=== PATIENT | female | born 1955 | race Caucasian/White ===

== ENCOUNTER 2022-03-17 09:33 | Observation (INO) ==
--- NOTE | 2022-03-17 09:46 | Emergency Department Note ---
HPI General Chief complaint: Abdominal Pain Stated complaint: right upper abd pain Time Seen by Provider: 03/17/22 09:35 Source: patient Mode of arrival: ambulatory Limitations: no limitations History of Present Illness HPI Narrative: Narrative: 66 yo F w/ h/o gallstones, hyperthyroidism p/w RUQ pain. She has been seen for this in the past, Dx'd w/ gallstones, and is on the schedule for rosemarie cristobal w/ Dr Hernandez on 03/22. However over the past few days she has had intermittent but progressive RUQ pain that radiates to the back. She does not think that she has had N/V or F/C. She has o/w been well. She does not note any significant alleviating/aggravating factors other than improvement after drinking her coffee this AM. Last PO was coffee w/ milk and sugar a few hours [employer]S [employer]. Related Data Home Medications Medication Instructions Recorded Confirmed cholecalciferol (vitamin D3) 75 3,000 unit PO QDAY 07/13/19 03/17/22 mcg (3,000 unit) tablet krill oil 500 mg capsule 500 mg PO QDAY cap 07/13/19 03/17/22 multivitamin (Multiple Vitamins) 1 tab PO QDAY 07/13/19 03/17/22 cranberry 400 mg capsule 3,600 mg PO QDAY 12/12/20 03/17/22 lutein 6 mg capsule 20 mg PO QDAY 12/12/20 03/17/22 calcium carbonate 500 mg calcium 500 mg PO QDAY 02/04/22 03/17/22 (1,250 mg) chewable tablet (Calcium 500) advanced iron 2 tab PO QDAY 03/12/22 03/17/22 vitamin B complex 1 tab PO QDAY 03/14/22 03/17/22 Allergies Allergy/AdvReac Type Severity Reaction Status Date / Time No Known Drug Allergies Allergy Verified 03/17/22 09:36 Review of Systems ROS ROS Narrative: Narrative: All systems ED: reviewed and negative except as stated. 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 Frausto History of esophagogastroduodenoscopy (EGD) (03/24/08) Dr Frausto History of surgery (~2007) venography and USG sclerotherapy - Dr. Joshi at [place]/bilateral pelvic vein coil embolization x3 History of total abdominal hysterectomy (~1988) Family History Mother , age 73 Heart attack Father Aneurysm age 87 Dementia Social History Smoking Status: Never smoker Alcohol Intake Frequency: a few times a week Substance Use: does not use Exam Narrative Narrative: Narrative: General Limitations: no limitations General appearance: Present alert and in no apparent distress Head Head: Present atraumatic and normocephalic Eye Eye: Present normal appearance; Absent scleral icterus ENT ENT: Present normal oropharynx and mucous membranes moist Chest Chest: Present normal inspection and symmetric chest wall rise Respiratory Respiratory: Present normal lung sounds bilaterally; Absent respiratory distress Cardiovascular Cardiovascular: Present regular rate, normal rhythm, +S1, +S2 and other (2+ B/L radial and DP pulses); Absent systolic murmur or diastolic murmur Adbominal Abdominal: Present soft, tenderness (RUQ, epigastric ), normal bowel sounds and Ham's sign; Absent distention, guarding, rebound or rigidity Extremities Extremities: Absent pedal edema Neurological Neurological: Present alert and oriented X3 Psychiatric Psychiatric: Present normal affect Skin Skin: Present warm (WNL) and dry Course Vital Signs Vital signs: Vital Signs Temperature 97.9 F 03/17/22 09:34 Pulse Rate 94 H 03/17/22 09:34 Respiratory Rate 20 03/17/22 09:34 Blood Pressure 150/80 03/17/22 09:34 Pulse Oximetry (%) 97 03/17/22 09:34 Temperature 97.9 F 03/17/22 12:56 Pulse Rate 79 03/17/22 12:56 Respiratory Rate 20 03/17/22 12:56 Blood Pressure 119/65 03/17/22 12:56 Pulse Oximetry (%) 97 03/17/22 12:56 MDM MDM Narrative Medical decision making narrative: Narrative: 66 yo F w/ h/o gallstones, hyperthyroidism p/w RUQ pain. DDx - peritonitis, cholecystitis, ascending cholangitis, pancreatitis, choledocholithiasis Pt presented clinically stable, in NAD. Her exam was not c/w peritonitis and CT was not indicated. With a positive Ham's, cholecystitis was clearly a concern. I checked a RUQ US to evaluate for this. While doing so I Tx'd w/ morphine however her pain returned, requiring a second dose. Labs showed no leukocytosis, normal LFTs, normal lipase. US showed gallbladder distension and multiple stones, along w/ some distension of the pancreatic head. I d/w Dr Hernandez and he admitted the pt w/ plan for operative intervention in the AM. I started her on IVF and IV abx. Lab Data Lab results reviewed: Yes I reviewed the patient's lab results. Result diagrams: 03/17/22 09:48 03/17/22 09:48 Labs: Lab Results 03/17/22 03/17/22 03/17/22 Range/Units 09:48 09:48 10:00 WBC 6.4 (4.5-11.0) K/mcL RBC 4.49 (3.59-5.38) M/mcL Hgb 12.1 (11.2-15.7) g/dL Hct 37.2 (34.1-44.9) % MCV 82.9 (80.0-100.0) fL MCH 26.9 (26.0-34.0) pg MCHC 32.5 (31.0-36.0) g/dL RDW 13.2 (11.5-14.5) % Plt Count 243 (140-440) K/mcL MPV 9.8 (7.4-10.4) fL Neut % (Auto) 77.5 (38.0-78.0) % Lymph % (Auto) 12.8 L (15.5-49.0) % [place] % (Auto) 8.6 (1.0-12.0) % Eos % (Auto) 0.5 (0.0-7.0) % Baso % (Auto) 0.6 (0.0-2.0) % Lymph # (Auto) 0.82 L (1.50-4.80) K/mcL [place] # (Auto) 0.55 (0.10-0.90) K/mcL Eos # (Auto) 0.03 (0.00-0.70) K/mcL Baso # (Auto) 0.04 (0.00-0.30) K/mcL Absolute Neutrophils 4.98 (1.80-8.00) K/mcL Sodium 136 (133-145) mmol/L Potassium 4.0 (3.3-5.1) mmol/L Chloride 101 (96-108) mmol/L Carbon Dioxide 25 (22-30) mmol/L Anion Gap 10.0 (8.0-16.0) BUN 8 (8-23) mg/dL Creatinine 0.5 L (0.6-1.1) mg/dL GFR Calculation 100 Glucose 107 H (70-105) mg/dL Calcium 9.3 (8.6-10.4) mg/dL Total Bilirubin 0.7 (0.1-1.0) mg/dL AST 13 (<32) U/L ALT 8 (<40) U/L Alkaline Phosphatase 75 (39-117) U/L Total Protein 6.6 (5.9-8.4) gm/dL Albumin 4.5 (3.2-5.2) gm/dL Globulin 2.1 L (2.2-3.7) gm/dL Albumin/Globulin Ratio 2.1 (1.0-2.3) Lipase 14 (7-60) U/L Urine Color Yellow Urine Appearance Clear (Clear) Urine pH 6.0 (5.0-9.0) Ur Specific [place] 1.016 (1.000-1.035) Urine Protein Negative (Negative) mg/dL Urine Glucose (UA) Negative (Negative) mg/dL Urine Ketones 5 A (Negative) mg/dL Urine Occult Blood 0.03 (Negative) mg/dL Urine Nitrate Negative (Negative) Urine Bilirubin Negative (Negative) mg/dL Urine Urobilinogen Negative mg/dL Ur Leukocyte Esterase Negative (Negative) /uL Urine RBC 4 H (0-3) /hpf Urine WBC 2 (0-4) /hpf Ur Squamous Epith Cells < 1 (0-4) /hpf Urine Bacteria None (0) /hpf Urine Mucus Mod A (None) /hpf Ur Culture Indicated? No Discharge Plan Patient/Caregiver Discharge Instructions Pt seen by THEATER EDUCATION TEACHER/PA only: No Clinical Impression: Acute cholecystitis Patient Disposition: Xfer As Inpt ([facility]) Condition: Fair Follow up with: Lia Woodruff ARNP [Primary Care Provider] - Prescriptions: No Action cholecalciferol (vitamin D3) 3,000 unit tablet 3,000 unit PO QDAY 0RF krill oil 500 mg capsule 500 mg PO QDAY 0RF multivitamin [Multiple Vitamins] tablet 1 tab PO QDAY 0RF advanced iron tablet 2 tab PO QDAY 0RF calcium carbonate [Calcium 500] 500 mg calcium (1,250 mg) tablet,chewable 500 mg PO QDAY 0RF lutein 6 mg capsule 20 mg PO QDAY 0RF Rx Instructions: give with meal/snack cranberry 400 mg capsule 3,600 mg PO QDAY 0RF Rx Instructions: administer with a meal vitamin B complex [Super B Complex] Tablet 1 tab PO QDAY 0RF
[2022-03-17] MEDS ORDERED: ONDANSETRON 4 MG/2 ML VIAL IV ONE (09:47)
[2022-03-17] MEDS ORDERED: morphine 2 MG/ML VIAL IV ONE ×2 (09:47→12:38)
[2022-03-17 10:18] LABS: Basophils # (Auto) 0.04 K/mcL (0.00-0.30); Basophils % (Auto) 0.6 % (0.0-2.0); Eosinophils # (Auto) 0.03 K/mcL (0.00-0.70); Eosinophils % (Auto) 0.5 % (0.0-7.0); Hematocrit 37.2 % (34.1-44.9); Hemoglobin 12.1 g/dL (11.2-15.7); Lymphocytes # (Auto) 0.82 K/mcL (1.50-4.80); Lymphocytes % (Auto) 12.8 % (15.5-49.0); Mean Cell Volume 82.9 fL (80.0-100.0); Mean Corpuscular HGB Conc 32.5 g/dL (31.0-36.0); Mean Platelet Volume 9.8 fL (7.4-10.4); Monocytes # (Auto) 0.55 K/mcL (0.10-0.90); Monocytes % (Auto) 8.6 % (1.0-12.0); Neutrophils % (Auto) 77.5 % (38.0-78.0); Platelet Count 243 K/mcL (140-440); RBC 4.49 M/mcL (3.59-5.38); Red Cell Distribution Width 13.2 % (11.5-14.5); WBC 6.4 K/mcL (4.5-11.0)
[2022-03-17 10:48] LABS: ALT/SGPT 8 U/L (<40); AST/SGOT 13 U/L (<32); Albumin 4.5 gm/dL (3.2-5.2); Albumin/Globulin Ratio 2.1 (1.0-2.3); Alkaline Phosphatase 75 U/L (39-117); Bilirubin,Total 0.7 mg/dL (0.1-1.0); Blood Urea Nitrogen 8 mg/dL (8-23); Calcium 9.3 mg/dL (8.6-10.4); Carbon Dioxide 25 mmol/L (22-30); Chloride 101 mmol/L (96-108); Globulin 2.1 gm/dL (2.2-3.7); Glomerular Filtration Rate 100; Glucose 107 mg/dL (70-105)
[2022-03-17 11:01] LABS: Appearance,Urine CLEAR (Clear); Bilirubin,Urine Negative (Negative); Color,Urine YELLOW; Culture Indicated,Urine No; Glucose,Urine (UA) Negative (Negative); Ketones,Urine 5 mg/dL (Negative); Leukocyte Esterase,Urine Negative /uL (Negative); Mucus,Urine MOD /hpf; Nitrate,Urine Negative (Negative); Protein,Urine Negative (Negative); Specific Gravity,Urine 1.016 (1.000-1.035); Urine Blood 0.03 mg/dL (Negative); Urine RBC 4 /hpf (0-3); Urine Squamous Epithelial Cell < 1 /hpf (0-4); Urine WBC 2 /hpf (0-4); Urobilinogen,Urine Negative
[2022-03-17] MEDS ORDERED: PIPERACILLIN SODIUM/TAZOBACTAM 3.375 GM in DEXTROSE 5% IN WATER 50 ML IV ONE (12:51)
[2022-03-17] MEDS ORDERED: DEXTROSE 5%-NS W/20MEQ KCL 1,000 ML IV SCH (13:00)
[2022-03-17] MEDS ORDERED: ONDANSETRON 4 MG/2 ML VIAL IV PRN (13:45)
--- NOTE | 2022-03-17 13:45 | General Surg History&Physical ---
HPI History of Present Illness Patient information: Note initiated : 03/17/22 at 1:44 pm Service Date, if different from initiated Date: [] Patient: Carlota Crowell a 66 y/o F admitted on for right upper abd pain. Chief Complaint: [] Chief complaint: Acute biliary colic History of present illness: Ms. Crowell is a 66 year old F with known history of gallstone disease. She was seen in the office on 12 March with complaint of crampy epigastric and right upper quadrant pain with radiation through to her back. She did not have nausea or vomiting. Previous ultrasound has revealed multiple gallstones. Patient is scheduled for cholecystectomy on 22 March 2022. She has had multiple episodes of increased pain with nausea and presents to the emergency room with severe discomfort. She was given 2 injections of analgesics and still remains uncomfortable. She is admitted and will have cholecystectomy in the a.m. 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 Frausto History of esophagogastroduodenoscopy (EGD) (03/24/08) Dr Frausto History of surgery (~2007) venography and USG sclerotherapy - Dr. Joshi at [place]/bilateral pelvic vein coil embolization x3 History of total abdominal hysterectomy (~1988) Family History Mother , age 73 Heart attack Father Aneurysm age 87 Dementia Social History marital status: physical activity: none alcohol intake frequency: a few times a week substance use type: does not use seatbelt use: always MEDS/ALLERGIES Home Medications and Allergies Home Medications Medication Instructions Recorded Confirmed Type cholecalciferol (vitamin D3) 75 3,000 unit PO QDAY 07/13/19 03/17/22 History mcg (3,000 unit) tablet krill oil 500 mg capsule 500 mg PO QDAY cap 07/13/19 03/17/22 History multivitamin (Multiple Vitamins) 1 tab PO QDAY 07/13/19 03/17/22 History cranberry 400 mg capsule 3,600 mg PO QDAY 12/12/20 03/17/22 History lutein 6 mg capsule 20 mg PO QDAY 12/12/20 03/17/22 History calcium carbonate 500 mg calcium 500 mg PO QDAY 02/04/22 03/17/22 History (1,250 mg) chewable tablet (Calcium 500) advanced iron 2 tab PO QDAY 03/12/22 03/17/22 History vitamin B complex 1 tab PO QDAY 03/14/22 03/17/22 History Allergies Allergy/AdvReac Type Severity Reaction Status Date / Time No Known Drug Allergies Allergy Verified 03/17/22 09:36 Physical Examination Vital Signs Vital signs: Temp Pulse Resp BP Pulse Ox 97.9 F 85 20 118/67 99 03/17/22 12:56 03/17/22 13:16 03/17/22 12:56 03/17/22 13:16 03/17/22 13:16 General physical appearance General physical exam: well developed, well nourished, moderate distress and moderate pain Eyes Eye exam: PERRL and normal ocular movement ENT ENT exam: normal mucosa Head Head exam IM: Present atraumatic, normal inspection and normocephalic Neck Neck exam: no masses, no bruits, trachea midline, no lymphadenopathy and no venous distension Cardiovascular Cardiovascular exam IM: Present normal rate and rhythm, RRR, +S1 and +S2; Absent JVD Respiratory Respiratory exam: normal expansion, normal respiratory effort and clear to auscultation Abdomen Abdomen: Present tender (Epigastric and right upper quadrant tenderness) Integumentary Integumentary: Present no rash, no growths and no abnormal pigmentation Neurologic Neurologic: Present normal coordination and normal sensation Musculoskeletal Musculoskeletal: Present normal gait and normal posture Psychiatric Psychiatric: Present oriented to time, oriented to person, oriented to place, speech is normal and memory intact Results Labs Result diagrams: 03/17/22 09:48 03/17/22 09:48 Labs: Abnormal lab results 03/17/22 03/17/22 03/17/22 Range/Units 09:48 09:48 10:00 Lymph % (Auto) 12.8 L (15.5-49.0) % Lymph # (Auto) 0.82 L (1.50-4.80) K/mcL Creatinine 0.5 L (0.6-1.1) mg/dL Glucose 107 H (70-105) mg/dL Globulin 2.1 L (2.2-3.7) gm/dL Urine Ketones 5 A (Negative) mg/dL Urine RBC 4 H (0-3) /hpf Urine Mucus Mod A (None) /hpf Diabetes panel 03/17/22 Range/Units 09:48 Sodium 136 (133-145) mmol/L Potassium 4.0 (3.3-5.1) mmol/L Chloride 101 (96-108) mmol/L Carbon Dioxide 25 (22-30) mmol/L BUN 8 (8-23) mg/dL Creatinine 0.5 L (0.6-1.1) mg/dL Glucose 107 H (70-105) mg/dL Calcium 9.3 (8.6-10.4) mg/dL AST 13 (<32) U/L ALT 8 (<40) U/L Alkaline Phosphatase 75 (39-117) U/L Total Protein 6.6 (5.9-8.4) gm/dL Albumin 4.5 (3.2-5.2) gm/dL Calcium panel 03/17/22 Range/Units 09:48 Calcium 9.3 (8.6-10.4) mg/dL Albumin 4.5 (3.2-5.2) gm/dL Pituitary panel 03/17/22 Range/Units 09:48 Sodium 136 (133-145) mmol/L Potassium 4.0 (3.3-5.1) mmol/L Chloride 101 (96-108) mmol/L Carbon Dioxide 25 (22-30) mmol/L BUN 8 (8-23) mg/dL Creatinine 0.5 L (0.6-1.1) mg/dL Glucose 107 H (70-105) mg/dL Calcium 9.3 (8.6-10.4) mg/dL Adrenal panel 03/17/ Range/Units 09:48 Sodium 136 (133-145) mmol/L Potassium 4.0 (3.3-5.1) mmol/L Chloride 101 (96-108) mmol/L Carbon Dioxide 25 (22-30) mmol/L BUN 8 (8-23) mg/dL Creatinine 0.5 L (0.6-1.1) mg/dL Glucose 107 H (70-105) mg/dL Calcium 9.3 (8.6-10.4) mg/dL Total Bilirubin 0.7 (0.1-1.0) mg/dL AST 13 (<32) U/L ALT 8 (<40) U/L Alkaline Phosphatase 75 (39-117) U/L Total Protein 6.6 (5.9-8.4) gm/dL Albumin 4.5 (3.2-5.2) gm/dL All other labs normal. A/P Assessment and plan (1) Cholelithiasis and cholecystitis without obstruction: Status: Acute Plan Patient is admitted for symptomatic treatment and control of pain She will be scheduled for cholecystectomy tomorrow Time Spent With Patient Time: Total time spent is greater than 50% in coordination of care (as documented) at patient's floor/unit and/or counseling patient:
--- NOTE | 2022-03-17 13:47 | Ultrasound Report ---
CLINICAL INFORMATION: Right upper quadrant pain COMPARISON: None. FINDINGS: Liver is moderately enlarged, 18 cm in vertical dimension, and heterogeneous. There is a 9 mm cyst in the right hepatic lobe. No solid lesion. The gallbladder is mildly distended and contains multiple stones. No wall thickening or focal tenderness suggest cholecystitis. Common bile duct is normal: 4 mm. Pancreas is unremarkable. No free fluid. IMPRESSION: Moderate hepatomegaly with inhomogeneous echotexture compatible fatty change or other diffuse hepatocellular process. Cholelithiasis. Interpreted and Authenticated by: Shen Will 03/17/22
[2022-03-17] MEDS: ACETAMINOPHEN 750 MG/75 ML BAG IV SCH ×2 (15:09→20:10)
[2022-03-17] MEDS: 0.9 % SODIUM CHLORIDE 1,000 ML IV SCH (15:10)
[2022-03-17] MEDS: PIPERACILLIN SODIUM/TAZOBACTAM 3.375 GM in DEXTROSE 5% IN WATER 50 ML IV SCH ×2 (17:38→23:11)
[2022-03-17] MEDS: fentaNYL 100 MCG/2 ML VIAL IV PRN (23:47)
[2022-03-18] MEDS: ACETAMINOPHEN 750 MG/75 ML BAG IV SCH ×2 (01:38→07:34)
[2022-03-18] MEDS: 0.9 % SODIUM CHLORIDE 1,000 ML IV SCH ×4 (03:58→22:02)
[2022-03-18] MEDS: PIPERACILLIN SODIUM/TAZOBACTAM 3.375 GM in DEXTROSE 5% IN WATER 50 ML IV SCH ×4 (06:01→23:17)
[2022-03-18] MEDS: fentaNYL 100 MCG/2 ML VIAL IV PRN ×5 (06:09→23:09)
[2022-03-18] MEDS ORDERED: SCOPOLAMINE 1 PATCH PATCH TOPICAL PRN (09:00)
[2022-03-18] MEDS ORDERED: IPRATROPIUM/ALBUTEROL 3 ML AMPUL.NEB NEB PRN ×2 (09:00→13:18)
[2022-03-18] MEDS ORDERED: MIDAZOLAM 2 MG/2 ML VIAL ONE (12:57)
[2022-03-18] MEDS ORDERED: KETAMINE 50 MG/ML Syringe (ANEST) IV ONE (12:57)
[2022-03-18] MEDS ORDERED: LIDOCAINE HCL/PF 100 MG/5 ML SYRINGE IV ONE (12:57)
[2022-03-18] MEDS ORDERED: PROPOFOL 200 MG/20 ML VIAL IV ONE (12:57)
[2022-03-18] MEDS ORDERED: DEXAMETHASONE 10 MG/ML VIAL ONE (12:57)
[2022-03-18] MEDS ORDERED: SUGAMMADEX SODIUM 200 MG/2 ML VIAL IV ONE (12:57)
[2022-03-18] MEDS ORDERED: GLYCOPYRROLATE 0.2 MG/ML VIAL IV ONE (12:57)
[2022-03-18] MEDS ORDERED: ONDANSETRON 4 MG/2 ML VIAL ONE (12:57)
[2022-03-18] MEDS ORDERED: MAGNESIUM SULFATE 2 GM/50 ML BAG IV ONE (12:57)
[2022-03-18] MEDS ORDERED: fentaNYL 100 MCG/2 ML VIAL IV ONE (12:57)
[2022-03-18] MEDS ORDERED: PHENYLephrine 1 MG/10 ML SYRINGE (ANEST) ONE (12:57)
[2022-03-18] MEDS ORDERED: LABETALOL 5 MG/ML ML IV PRN (13:18)
[2022-03-18] MEDS ORDERED: METOPROLOL TARTRATE 5 MG/5 ML VIAL IV PRN (13:18)
[2022-03-18] MEDS ORDERED: LACTATED RINGERS 250 ML IV PRN (13:18)
[2022-03-18] MEDS ORDERED: ACETAMINOPHEN 1,000 MG/100 ML BAG IV ONE (13:18)
[2022-03-18] MEDS ORDERED: METHOCARBAMOL 1,000 MG/10 ML VIAL IV PRN (13:18)
[2022-03-18] MEDS ORDERED: HYDROmorphone 0.5 MG/0.5 ML SYRINGE IV PRN (13:18)
[2022-03-18] MEDS ORDERED: FLUMAZENIL 0.1 MG/ML ML IV PRN (13:18)
[2022-03-18] MEDS ORDERED: ONDANSETRON 4 MG/2 ML VIAL IV PRN (13:18)
[2022-03-18] MEDS ORDERED: NALOXONE HCL 0.4 MG/ML VIAL IV PRN (13:18)
--- NOTE | 2022-03-18 14:02 | Brief Operative Note ---
Brief Operative Note Date of procedure: 03/18/22 Pre-op diagnosis: cholelithiasis with cholecystitis Post-op diagnosis: other (cholelithiasis with cholecystitis) Procedure: open cholecystectomy Grafts/Implants: No Anesthesia: GETA Findings: massively dilated gallbladder extending into hypogastrium Complications: none Surgeon: Abiola Hernandez Estimated blood loss (cc): 10 Specimens Removed/Pathology: other (gallbladder) Condition: stable Disposition: PACU
[2022-03-18] MEDS: LACTATED RINGERS 1,000 ML IV SCH ×2 (15:40→15:52)
[2022-03-18] MEDS: oxyCODONE HCL 5 MG TABLET PO PRN ×2 (16:53→21:04)
[2022-03-19] MEDS: oxyCODONE HCL 5 MG TABLET PO PRN ×2 (01:44→05:49)
[2022-03-19] MEDS: 0.9 % SODIUM CHLORIDE 1,000 ML IV SCH ×2 (03:35→07:57)
[2022-03-19] MEDS: PIPERACILLIN SODIUM/TAZOBACTAM 3.375 GM in DEXTROSE 5% IN WATER 50 ML IV SCH ×2 (05:40→11:37)
[2022-03-19 06:32] LABS: Basophils # (Auto) 0.02 K/mcL (0.00-0.30); Basophils % (Auto) 0.2 % (0.0-2.0); Eosinophils # (Auto) 0 K/mcL (0.00-0.70); Eosinophils % (Auto) 0 % (0.0-7.0); Hematocrit 37.1 % (34.1-44.9); Hemoglobin 11.8 g/dL (11.2-15.7); Lymphocytes # (Auto) 0.87 K/mcL (1.50-4.80); Lymphocytes % (Auto) 10.2 % (15.5-49.0); Mean Cell Volume 84.3 fL (80.0-100.0); Mean Corpuscular HGB Conc 31.8 g/dL (31.0-36.0); Mean Platelet Volume 9.9 fL (7.4-10.4); Monocytes # (Auto) 0.63 K/mcL (0.10-0.90); Monocytes % (Auto) 7.4 % (1.0-12.0); Neutrophils % (Auto) 81.8 % (38.0-78.0); Platelet Count 266 K/mcL (140-440); Red Cell Distribution Width 13.4 % (11.5-14.5); WBC 8.5 K/mcL (4.5-11.0)
[2022-03-19 07:18] LABS: ALT/SGPT 21 U/L (<40); AST/SGOT 25 U/L (<32); Albumin 4.1 gm/dL (3.2-5.2); Albumin/Globulin Ratio 1.8 (1.0-2.3); Alkaline Phosphatase 68 U/L (39-117); Bilirubin,Direct 0.2 mg/dL (<0.3); Bilirubin,Total 0.6 mg/dL (0.1-1.0); Blood Urea Nitrogen 15 mg/dL (8-23); Carbon Dioxide 22 mmol/L (22-30); Chloride 102 mmol/L (96-108); Globulin 2.3 gm/dL (2.2-3.7); Glomerular Filtration Rate 95; Glucose 92 mg/dL (70-105); Lactate Dehydrogenase 122 U/L (135-225); Phosphorous 4.2 mg/dL (2.5-4.5); Triglycerides 69 mg/dL (<150); Uric Acid 3.3 mg/dL (2.5-8.0)
--- NOTE | 2022-03-19 12:16 | Discharge Summary ---
Discharge Provider Provider IMPORTANT FOLLOW-UP INFORMATION FOR PCP: Patient information: Note initiated : 03/19/22 at 12:16 pm Service Date, if different from initiated Date: [] Patient: Carlota Corwell 66 y/o F admitted on 03/17/22 for right upper abd pain. Chief Complaint: [] Date of admission: 03/17/22 13:50 Discharge date: 03/19/22 Primary care physician: JACY Jimenez Admitting clinician: Abiola Hernandez Attending physician on admission: Abiola Hernandez Consults: 03/17/22 Consult to Physician [CONS] Stat Comment: Consulting Provider: Abiola Hernandez Reason For Exam: Physician to Consult Attending physician on discharge: Abiola Hernandez Discharging clinician: Abiola Hernandez COURSE Hospital Course Hospital course: 66-year-old female with known history of gallstone disease who presents to the emergency room with history of recurrent abdominal pain with nausea vomiting. She had epigastric and right upper quadrant tenderness. She was admitted and underwent open cholecystectomy on yesterday. She has had uneventful course. Her LFTs are normal. She is stable for discharge. Discharge diagnosis: Cholelithiasis with cholecystitis Reason for admission: Cholecystitis with cholelithiasis Procedures: Open cholecystectomy Pertinent studies/significant findings: None Complications: None Time Spent with Patient Time attestation: Total time spent providing and/or coordinating discharge services: Time spent: Less than 30 minutes Physical Examination Vital Signs Vital signs: Temp Pulse Resp BP Pulse Ox 98.0 F 70 16 115/57 100 03/19/22 07:17 03/19/22 07:17 03/19/22 07:17 03/19/22 07:17 03/19/22 07:17 General physical appearance General physical exam: well developed, well nourished, no distress and moderate pain Eyes Eye exam: PERRL and normal ocular movement ENT ENT exam: normal mucosa and no congestion Head Head exam IM: Present atraumatic, normal inspection and normocephalic Neck Neck exam: no masses, no bruits, trachea midline, no lymphadenopathy and no veno us distension Cardiovascular Cardiovascular exam IM: Present normal rate and rhythm, RRR, +S1 and +S2; Absent gallop or JVD Respiratory Respiratory exam: normal expansion, normal respiratory effort and clear to auscultation Abdomen Abdomen: Present tender (Tenderness of midline incision) and surgical scars (Unremarkable midline surgical scar) Integumentary Integumentary: Present no rash, no growths and no abnormal pigmentation Neurologic Neurologic: Present normal coordination and normal sensation Musculoskeletal Musculoskeletal: Present normal gait and normal posture Psychiatric Psychiatric: Present oriented to time, oriented to person, oriented to place, speech is normal and memory intact Discharge Plan Patient/Caregiver Discharge Instructions Activity: increase activity as tolerated Diet: Regular Diet and Low Fat Prescriptions: New oxycodone-acetaminophen [Endocet] 10-325 mg Tablet 1 tab PO Q4H PRN (Reason: Pain) Qty: 30 0RF Continued cholecalciferol (vitamin D3) 3,000 unit tablet 3,000 unit PO QDAY 0RF krill oil 500 mg capsule 500 mg PO QDAY 0RF multivitamin [Multiple Vitamins] tablet 1 tab PO QDAY 0RF advanced iron tablet 2 tab PO QDAY 0RF calcium carbonate [Calcium 500] 500 mg calcium (1,250 mg) tablet,chewable 500 mg PO QDAY 0RF lutein 6 mg capsule 20 mg PO QDAY 0RF Rx Instructions: give with meal/snack cranberry 400 mg capsule 3,600 mg PO QDAY 0RF Rx Instructions: administer with a meal vitamin B complex Tablet 1 tab PO QDAY 0RF Follow Up Plan Follow up with: Lia Woodruff ARNP [Primary Care Provider] - Abiola Hernandez MD [Physician] - (Follow-up with me in 2 weeks) Patient Disposition: Home, Self-Care Assessment: Patient is doing very well and is stable at the time of discharge Prognosis: Good Rehab Potential: Good I certify that the patient requires SNF services: No Overall status at discharge: patient is progressing back to baseline Discharge Orders: Discharge Order (Routine); Ordered 03/19/22 Ordered By: Abiola Hernandez Pending Pending Pending: Resuscitation Status Resuscitate (Full Code) Diet Regular Diet Start FriMar 19 0800 Fentanyl (Fentanyl 100 Mcg/2 Ml Vial) 25 mcg IV Q2HP PRN; Protocol PRN Reason: Per Pain Protocol Last Admin: 03/18/22 23:09 Dose: 25 mcg Documented by: Admin: 03/18/22 12:02 Dose: 25 mcg Documented by: Admin: 03/18/22 06:09 Dose: 25 mcg Documented by: Admin: 03/17/22 23:47 Dose: 25 mcg Documented by: DEO Sodium Chloride (Sodium Chloride 0.9%) 1,000 mls @ 100 mls/hr IV .Q10H [place] Last Admin: 03/19/22 07:57 Dose: Not Given Documented by: Admin: 03/19/22 03:35 Dose: 100 mls/hr Documented by: Infusion: 03/19/22 03:34 Dose: 0 mls/hr Documented by: Admin: 03/18/22 22:02 Dose: Not Given Documented by: Admin: 03/18/22 15:56 Dose: 100 mls/hr Documented by: SILVESTRE Cosigned by: DIDIER Infusion: 03/18/22 13:58 Dose: 0 mls/hr Documented by: SILVESTRE Cosigned by: DIDIER Admin: 03/18/22 08:31 Dose: Not Given Documented by: Admin: 03/18/22 03:58 Dose: 100 mls/hr Documented by: Infusion: 03/18/22 01:10 Dose: 100 mls/hr Documented by: Admin: 03/17/22 15:10 Dose: 100 mls/hr Documented by: SILVESTRE Cosigned by: DIDIER Piperacillin Sod/Tazobactam (Sod 3.375 gm/ Dextrose) 50 mls @ 100 mls/hr IV Q6H [facility]; Protocol Last Admin: 03/19/22 11:37 Dose: 100 mls/hr Documented by: Infusion: 03/19/22 06:36 Dose: 0 mls/hr Documented by: Admin: 03/19/22 05:40 Dose: 100 mls/hr Documented by: Infusion: 03/19/22 00:10 Dose: 0 mls/hr Documented by: Admin: 03/18/22 23:17 Dose: 100 mls/hr Documented by: Infusion: 03/18/22 17:56 Dose: 0 mls/hr Documented by: SILVESTRE Cosigned by: DIDIER Admin: 03/18/22 17:26 Dose: 100 mls/hr Documented by: SILVESTRE Cosigned by: DIDIER Infusion: 03/18/22 12:43 Dose: 0 mls/hr Documented by: Admin: 03/18/22 12:13 Dose: 100 mls/hr Documented by: SILVESTRE Cosigned by: DIDIER Infusion: 03/18/22 06:31 Dose: 0 mls/hr Documented by: SILVESTRE Cosigned by: DIDIER Admin: 03/18/22 06:01 Dose: 100 mls/hr Documented by: Infusion: 03/17/22 23:41 Dose: 100 mls/hr Documented by: Admin: 03/17/22 23:11 Dose: 100 mls/hr Documented by: Infusion: 03/17/22 18:09 Dose: 0 mls/hr Documented by: SILVESTRE Cosigned by: DIDIER Admin: 03/17/22 17:38 Dose: 100 mls/hr Documented by: SILVESTRE Cosimnh by: DIDIER Ondansetron HCl (Ondansetron 4 Mg/2 Ml Vial) 4 mg IV Q4HP PRN; Protocol PRN Reason: Nausea/Vomiting Last Admin: 03/18/22 17:21 Dose: 4 mg Documented by: SILVESTRE Cosigned by: DIDIER Oxycodone HCl (Oxycodone Hcl 5 Mg Tablet) 10 mg PO Q4HP PRN; Protocol PRN Reason: Per Pain Protocol Last Admin: 03/19/22 05:49 Dose: 10 mg Documented by: Admin: 03/19/22 01:44 Dose: 10 mg Documented by: Admin: 03/18/22 21:04 Dose: 10 mg Documented by: Admin: 03/18/22 16:53 Dose: 10 mg Documented by: SILVESTRE Cosigned by: DIDIER Shift Summary 03/19/22 04:05 Shift Summary by Melania Mak Primary Diagnosis: Acute Cholelithiasis with Cholecystitis Registration Status: OBS/ Admit 03/17 Pertinent Medical Hx/Issue(s): Back pain, hyperthyroidism, acute cholecystitis. Vital Signs with Trends: Soft Sbps (per pt: low BP is her baseline) all other VSS on RA. PRN Meds: x2 Roxicodone, x1 Fentanyl with good results Interventions: Q2 hr turning; PRN pain meds; Ice; Abd midline incision drsg with scant serosanguineous drainage; yong intact, no s/s of infection noted this shift. Lab/Rad (abnormal results): 03/17 U/S IMPRESSION: Moderate hepatomegaly with i nhomogeneous echotexture compatible fatty change or other diffuse hepatocellular process. Cholelithiasis. Neuro/Mental Status: A&OX4. Activity status: Bedrest with BR privileges; Up to BSC with 1p assist pivot transfer Diet: FL/ Regular diet at 0800 Void / BM: Voiding without issue via BSC; No BM noted this shift Lines/Tubes: 20g LFA IV running NS @ 100ml/hr. Recommendations/questions for MD: Expected date of discharge: TBD Discharge Plan (needs, disposition, etc): To d/c home with when medically cleared. Initialized on 03/19/22 04:05 - END OF NOTE
--- NOTE | 2022-03-20 12:49 | EKG ---
[facility] Test Date: 2022-03-18 Pat Name: Carlota Crowell Department: [facility] Room: 107 Gender: Female Sample Puller: : 1955 Requested By: Aaron Lott Order Number: [id number] Reading MD: Drake Gama Measurements Intervals [place] Rate: 68 P: 64 [place]: 139 QRS: -46 QRSD: 111 T: 61 QT: 436 QTc: 464 Interpretive Statements Sinus rhythm consider left anterior fascicular block Electronically Signed On 03-20-2022 12:48:44 PDT by Drake Gama [id number]
--- NOTE | 2022-03-20 12:55 | Operative Note ---
DATE OF OPERATION: 03/18/2022 DATE OF PROCEDURE: 03/18/2022 PREOPERATIVE DIAGNOSIS: Cholelithiasis with cholecystitis. POSTOPERATIVE DIAGNOSIS: Cholelithiasis with cholecystitis. PROCEDURE: Open cholecystectomy. SURGEON: Abiola Hernandez M.D. FINDINGS: Massively dilated gallbladder extending into the hypogastrium. DESCRIPTION OF PROCEDURE: Under general anesthesia, the patient's abdomen was prepped and draped in a sterile field. A timeout procedure was carried out as per protocol. Supraumbilical incision was made and a Veress needle was inserted. Upon inserting the Veress needle, even though the abdomen was maximally tented up, I got fresh bile. It was apparent that I had stuck the gallbladder or the common duct. The patient is extremely thin. The needle was removed and the supraumbilical incision was extended cephalad. Upon entering the peritoneal cavity, a very large, edematous, slightly thickened gallbladder was encountered. The puncture hole from the Veress needle could be seen. There was no major bile contamination. The gallbladder was further decompressed since it extended into the hypogastrium. Once the gallbladder was decompressed, I was able to pull it up into the incision. Using electrocautery, the gallbladder was from the infrahepatic bed without difficulty. It was dissected down to the cystic artery and the cystic duct. The cystic artery and cystic duct were definitively identified and was followed back to the gallbladder. Cystic artery and cystic duct were each clipped with 5 clips and divided. Gallbladder was removed. Irrigation was carried out. There was no bile leak and there was no significant bleeding. Inspection was carried out to make sure there was no small bowel or stomach injury. The colon was significantly below the area of operation. Sponge, needle, instrument, and blade counts were verified x3 since we did not have an initial instrument count. The fascia was closed with running 0 Prolene. Subcutaneous tissue was closed with running 2-0 Monocryl. Skin was closed with yong. The patient tolerated the procedure well. Tegaderm dressing was placed. She was awakened and transferred to the postanesthetic care unit in stable, satisfactory condition. LCS:raheem Job ID: [id number] Doc ID: [id number] Abiola Hernandez M.D.
== END 2022-03-19 13:35 | disposition home or self-care (01) ==
LOC: ED 09:33 → MEDSUR 09:33
PROVIDERS: ADMIT Family Medicine Adult Medicine; ATTEND Family Medicine Adult Medicine